=== PATIENT | female | born 1960 | race Asian ===

== ENCOUNTER 2019-05-04 07:45 | Day surgery (SDC) | payer OTHER ==
[~2019-05-04] VITALS: Ht 162.6 cm; Wt 60.8 kg
[2019-05-04] MEDS ORDERED: fentaNYL 0.05 MG/ML VIAL ONE (08:43)
[2019-05-04] MEDS ORDERED: LIDOCAINE 2% 100 MG/5 ML UJET TP ONE (08:43)
[2019-05-04] MEDS ORDERED: MIDAZOLAM 2 MG/2 ML VIAL ONE (08:43)
[2019-05-04] MEDS ORDERED: VITAMIN D (08:52)
[2019-05-04] MEDS ORDERED: CALC500T2 PO (08:53)
[2019-05-04] MEDS ORDERED: fentaNYL 0.05 MG/ML VIAL IVP ONE (09:50)
[2019-05-04] MEDS ORDERED: MIDAZOLAM 2 MG/2 ML VIAL IVP ONE (09:50)
== END 2019-05-04 10:30 | disposition home or self-care (01) ==
LOC: MDS 07:45 → MMU 07:53 → MDS 10:30
PROVIDERS: ATTEND Internal Medicine Gastroenterology
DX: K62.5 Hemorrhage of anus and rectum (principal); K64.4 Residual hemorrhoidal skin tags; K59.00 Constipation, unspecified
CPT/HCPCS: 45378; J2250; J3010